=== PATIENT | male | born 1980 ===

== ENCOUNTER 2018-08-18 16:04 | Emergency (ER) | payer OTHER ==
[2018-08-18 16:38] VITALS: BMI 30.7
[2018-08-18 16:41] VITALS: BP 131/83; PULSE 75; RESP 18; TEMP 99.1; O2SAT 97
--- NOTE | 2018-08-18 16:53 | C.PDOC ---
History Of Present Illness Patient comes to ER reporting left eye redness and irritation x 1 week. He denies any foreign body sensation, pain, trauma or contact lens use. Patient reports watery discharge and crusting in the morning; also reports some light sensitivity. He has no additional complaints. Time Seen by Provider: 08/18/18 16:46 Chief Complaint (Nursing): Eye Problem History Per: Patient History/Exam Limitations: no limitations Onset/Duration Of Symptoms: Days Current Symptoms Are (Timing): Still Present Wears Contact Lens?: No Associated Symptoms: Pain, Discharge From Eye. denies: Decreased Vision, FB Sensation Additional History Per: Patient Past Medical History Reviewed: Historical Data, Nursing Documentation, Vital Signs Vital Signs: Last Vital Signs Temp 99.1 F 08/18/18 16:38 Pulse 75 08/18/18 16:38 Resp 18 08/18/18 16:38 BP 131/83 08/18/18 16:38 Pulse Ox 97 08/18/18 16:38 - Medical History PMH: No Chronic Diseases Surgical History: No Surg Hx Family History: States: No Known Family Hx - Social History Hx Alcohol Use: No Hx Substance Use: No Review Of Systems Constitutional: Negative for: Fever, Chills Eyes: Positive for: Pain (left eye), Redness, Other (watery discharge). Negative for: Vision Change Physical Exam - Physical Exam Appears: Non-toxic, No Acute Distress Skin: Warm, Dry Head: Atraumatic, Normacephalic Eye(s): bilateral: PERRL, EOMI, left: Other (+conjuctival injectionl; no periorbital swelling or tenderness) Ear(s): Bilateral: Normal Oral Mucosa: Moist Neck: Normal ROM, Supple Neurological/Psych: Oriented x3 ED Course And Treatment O2 Sat by Pulse Oximetry: 97 (RA) Pulse Ox Interpretation: Normal Medical Decision Making Medical Decision Making: Plan: -- Left eye patch applied. Patient given prescription for Polytrim solution and instructed to follow up with PMD in 2-3 days. Disposition Counseled Patient/Family Regarding: Diagnosis, Need For Followup, Rx Given - Disposition Referrals: Resource Analyst Service [Outside] [facility] at [facility] [Outside] Aguilar Pierre [Staff Provider] - Disposition: HOME/ ROUTINE Disposition Time: 16:52 Condition: IMPROVED Prescriptions: Polymyxin/Trimethoprim Sulfate [Polytrim Ophth Soln] 1 drop OD Q3H #1 bottle Instructions: Conjunctivitis ([place]) (DC) Forms: [facility] (Sierra Leonean), Work Excuse Print Language: BENINESE - Clinical Impression Clinical Impression: Conjunctivitis - Scribe Statement The provider has reviewed the documentation as recorded by the Alphonsoibe Lynette Blanco Provider Attestation: All medical record entries made by the Alphonsoibe were at my direction and personally dictated by me. I have reviewed the chart and agree that the record accurately reflects my personal performance of the history, physical exam, medical decision making, and the department course for this patient. I have also personally directed, reviewed, and agree with the discharge instructions and disposition.
== END 2018-08-18 17:19 | disposition home or self-care (01) ==
LOC: C.ER 16:04
DX: H10.9 Unspecified conjunctivitis (principal)

== ENCOUNTER 2019-01-10 09:34 | Outpatient (CLI) | payer OTHER | END 2019-01-10 09:35 | disposition home or self-care (01) | LOC: C.LAB 09:34 | DX: Z01.818 Encounter for other preprocedural examination (principal); S83.242A Other tear of medial meniscus, current injury, left knee, initial encounter ==

== ENCOUNTER 2019-01-14 07:31 | Outpatient (CLI) | payer OTHER | END 2019-01-14 07:32 | disposition home or self-care (01) | LOC: C.CARD 07:31 | DX: S83.242A Other tear of medial meniscus, current injury, left knee, initial encounter (principal) ==

== ENCOUNTER 2019-03-28 12:59 | Emergency (ER) | payer OTHER ==
[2019-03-28 12:59] VITALS: BMI 30.7
[2019-03-28 13:09] VITALS: BP 117/79; PULSE 64; RESP 18; TEMP 98; O2SAT 96
--- NOTE | 2019-03-28 14:33 | C.PDOC ---
History Of Present Illness 39 year old male presents to the ED complaining of nose pain and discharge for 2 days. Reports he started picking his nose because he saw a growth inside his nostril and white discharge came out. Denies any trauma or injuries. Denies headache, sore throat, fever or chills. Time Seen by Provider: 03/28/19 13:28 Chief Complaint (Nursing): ENT Problem History Per: Patient History/Exam Limitations: None Onset/Duration Of Symptoms: Days Current Symptoms Are (Timing): Still Present Past Medical History Reviewed: Historical Data, Nursing Documentation, Vital Signs Vital Signs: Last Vital Signs Temp 98.0 F 03/28/19 13:08 Pulse 64 03/28/19 13:08 Resp 18 03/28/19 13:08 BP 117/79 03/28/19 13:08 Pulse Ox 96 03/28/19 13:08 Primary Care Provider: FAMILY PROVIDER,NO - Medical History PMH: No Chronic Diseases Surgical History: No Surg Hx Family History: States: No Known Family Hx - Social History Hx Alcohol Use: No Hx Substance Use: No Review Of Systems Constitutional: Negative for: Fever, Chills ENT: Positive for: Nose Pain, Nose Discharge Neurological: Negative for: Headache Physical Exam - Physical Exam Appears: Non-toxic, No Acute Distress Skin: Warm, Dry, No Rash Head: Atraumatic, Normacephalic Eye(s): bilateral: PERRL, EOMI Ear(s): Bilateral: Normal Nose: Other (whitish growth noted in right nare attached to right septum, clear fluid noted in left nostril ) Oral Mucosa: Moist Tongue: Normal Appearing Lips: Normal Appearing Teeth: Normal Dentition Gingiva: Normal Appearing Throat: Normal Neck: Supple Chest: Symmetrical Cardiovascular: Rhythm Regular Respiratory: No Rales, No Rhonchi, No Wheezing, Other (CTA B/L) Neurological/Psych: Oriented x3, Normal Speech, Normal Cognition Gait: Steady ED Course And Treatment O2 Sat by Pulse Oximetry: 96 (RA) Pulse Ox Interpretation: Normal Medical Decision Making Medical Decision Making: pt with possible nasal polyp in right nare, fluid noted in left. will d/c with augmentin and flonase and f/u clinic for ent referral/. Disposition Counseled Patient/Family Regarding: Diagnosis, Need For Followup - Disposition Referrals: Pulmonary Specialist Service [Outside] [facility] [Outside] Narendra Melo MD [Staff Provider] - Disposition: HOME/ ROUTINE Disposition Time: 14:31 Condition: GOOD Additional Instructions: MEDICINE SENT TO [facility] ON [address] IN [place] No ponga nada en la nariz para recoger o rasguar. [place] antibiticos hasta completar. Use Flonase segn lo prescrito. Sangita un seguimiento en la clnica mdica para derivarlo a un mdico ENT (odo / nariz / garganta). Tylenol para el dolor si es necesario. Regrese a la noemi de emergencias para cualquier sntoma peor. Do not put anything in nose to pick or scratch. Take antibiotics until completed.USe Flonase as prescribed. Follow up in medical clinic for referral to ENT (ear/nose/throat) doctor. Tylenol for pain if needed. Return to ER for any worse symptoms. Prescriptions: Amoxicillin [Amoxil 500 mg Cap] 500 mg PO BID #20 cap Fluticasone Nasal [Flonase] 1 spr NS DAILY #1 bottle Forms: Gen Discharge Inst Chilean, [employer] (Chilean) Print Language: URDU - Clinical Impression Clinical Impression: Nasal polyp, unspecified - PA / AWARD CLERK / Resident Statement MD/DO has reviewed & agrees with the documentation as recorded. - Scribe Statement The provider has reviewed the documentation as recorded by the Scribe Ana Saldivar All medical record entries made by the Scribe were at my direction and personally dictated by me. I have reviewed the chart and agree that the record accurately reflects my personal performance of the history, physical exam, medical decision making, and the department course for this patient. I have also personally directed, reviewed, and agree with the discharge instructions and disposition.
== END 2019-03-28 14:41 | disposition home or self-care (01) ==
LOC: C.ER 12:59
DX: J33.9 Nasal polyp, unspecified (principal)